=== PATIENT | female | born 1955 | race Two or more races ===

== ENCOUNTER 2021-03-10 15:07 | Outpatient (CLI) | payer OTHER | END 2021-03-10 15:22 | disposition home or self-care (01) | LOC: RAD 15:07 | PROVIDERS: ATTEND Orthopaedic Surgery | DX: M25.562 Pain in left knee (principal) ==

== ENCOUNTER → 2021-06-09 11:32 | Outpatient (CLI) | payer OTHER | END | disposition home or self-care (01) | LOC: RAD 11:32 | PROVIDERS: ATTEND Orthopaedic Surgery | DX: M17.12 Unilateral primary osteoarthritis, left knee (principal) ==

== ENCOUNTER 2021-07-25 09:05 | Outpatient (CLI) | payer OTHER | END 2021-07-25 09:07 | disposition home or self-care (01) | LOC: LAB 09:05 | PROVIDERS: ATTEND Orthopaedic Surgery | DX: D64.89 Other specified anemias (principal); E88.89 Other specified metabolic disorders; D68.8 Other specified coagulation defects; N39.0 Urinary tract infection, site not specified; Z22.322 Carrier or suspected carrier of Methicillin resistant Staphylococcus aureus; I49.8 Other specified cardiac arrhythmias; I10 Essential (primary) hypertension; Z76.89 Persons encountering health services in other specified circumstances ==

== ENCOUNTER 2021-08-11 09:15 | Inpatient (IN) | payer OTHER ==
[~2021-08-11] VITALS: Ht 165.1 cm; Wt 65.8 kg
[2021-08-17] MEDS ORDERED: XARELTO10 M1 (13:04)
== END 2021-08-18 18:05 | DRG 470 ==
LOC: SURH 08-15 08:10 → O/R 08-15 09:37 → SURH 08-15 19:00 → O/R 08-15 19:44 → SURH 08-15 20:10
PROVIDERS: ADMIT Orthopaedic Surgery; ATTEND Orthopaedic Surgery
PROC: 0SRD0J9 Replacement of Left Knee Joint with Synthetic Substitute, Cemented, Open Approach (ICD-10-PCS; principal; 2021-08-15 08:10)
DX: M17.12 Unilateral primary osteoarthritis, left knee (principal)

== ENCOUNTER 2022-08-17 08:43 | Outpatient (CLI) | payer OTHER ==
[~2022-08-17 08:43] MED LIST: XARELTO10 M1
== END 2022-08-17 08:52 | disposition home or self-care (01) ==
LOC: RAD 08:43
PROVIDERS: ATTEND Orthopaedic Surgery
DX: Z96.652 Presence of left artificial knee joint (principal)

== ENCOUNTER 2023-02-21 07:22 | Outpatient (CLI) | payer OTHER | END 2023-02-21 07:28 | disposition home or self-care (01) | LOC: RAD 07:22 | PROVIDERS: ATTEND Orthopaedic Surgery | DX: M20.11 Hallux valgus (acquired), right foot (principal) ==

== ENCOUNTER 2023-02-27 09:30 | Outpatient (CLI) | payer OTHER ==
[2023-03-01] MEDS ORDERED: PRAVASTATIN SOD10 MG PO (14:18)
== END 2023-02-27 09:41 | disposition home or self-care (01) ==
LOC: LAB 09:30
PROVIDERS: ATTEND Orthopaedic Surgery
DX: D64.89 Other specified anemias (principal); E88.89 Other specified metabolic disorders; D68.8 Other specified coagulation defects; N39.0 Urinary tract infection, site not specified; Z22.322 Carrier or suspected carrier of Methicillin resistant Staphylococcus aureus; E11.9 Type 2 diabetes mellitus without complications; Z76.89 Persons encountering health services in other specified circumstances; I49.9 Cardiac arrhythmia, unspecified; I10 Essential (primary) hypertension

== ENCOUNTER 2023-03-05 05:56 | Day surgery (SDC) | payer OTHER ==
[~2023-03-05 05:56] MED LIST changes: +PRAVASTATIN SOD10 MG PO
[2023-03-05] MEDS ORDERED: BACTRIM DS TAB1 EACH PO ×2 (11:43→11:49)
== END 2023-03-05 15:50 | disposition home or self-care (01) ==
LOC: CIR.AMB 05:56
PROVIDERS: ATTEND Orthopaedic Surgery
DX: M20.12 Hallux valgus (acquired), left foot (principal); M21.172 Varus deformity, not elsewhere classified, left ankle; Z20.822 Contact with and (suspected) exposure to COVID-19
CPT/HCPCS: 28299; L8699

== ENCOUNTER 2023-03-26 07:48 | Outpatient (CLI) | payer OTHER ==
[~2023-03-26 07:48] MED LIST changes: +BACTRIM DS TAB1 EACH PO
== END 2023-03-26 07:49 | disposition home or self-care (01) ==
LOC: LAB 07:48
PROVIDERS: ATTEND Orthopaedic Surgery
DX: M85.9 Disorder of bone density and structure, unspecified (principal); E56.1 Deficiency of vitamin K; E83.42 Hypomagnesemia

== ENCOUNTER 2023-04-11 10:58 | Outpatient (CLI) | payer OTHER | END 2023-04-11 11:04 | disposition home or self-care (01) | LOC: RAD 10:58 | PROVIDERS: ATTEND Orthopaedic Surgery | DX: M20.12 Hallux valgus (acquired), left foot (principal) ==

== ENCOUNTER 2023-06-14 10:25 | Outpatient (CLI) | payer OTHER | END 2023-06-14 10:27 | disposition home or self-care (01) | LOC: RAD 10:25 | PROVIDERS: ATTEND Orthopaedic Surgery | DX: M20.12 Hallux valgus (acquired), left foot (principal) ==

== ENCOUNTER 2023-06-18 12:44 | Outpatient (CLI) | payer OTHER | END 2023-06-18 12:45 | disposition home or self-care (01) | LOC: LAB 12:44 | PROVIDERS: ATTEND Orthopaedic Surgery | DX: M85.9 Disorder of bone density and structure, unspecified (principal); E83.42 Hypomagnesemia; E56.1 Deficiency of vitamin K ==

== ENCOUNTER 2023-09-11 07:40 | Outpatient (CLI) | payer OTHER ==
[2023-09-11 08:35] LABS: HEMATOCRIT 41.8 % (36.0-45.00); MEAN CELL VOLUME 92.9 fL (80.00-100.00); MEAN CORPUSCULAR HEMOGLOBIN 31.1 pg (27.00-32.0); MEAN CORPUSCULAR HGB CONC 33.4 g/dl (32.0-36.0); PLATELET COUNT 231 K/uL (150-450); RED CELL DISTRIBUTION WIDTH 13.7 % (11.5-14.5)
[2023-09-11 08:37] LABS: PH,URINE 6.5 (5.0-8.0); URINE APPEARANCE Clear; URINE BILIRRUBIN Negative (NEGATIVE); URINE BLOOD Negative; URINE COLOR Yellow; URINE GLUCOSE Negative (NEGATIVE); URINE LEUKOCYTE Trace; URINE NITRATE Negative; URINE PROTEIN Negative (NEGATIVE); URINE UROBILINOGEN 0.2 E.U./dl
[2023-09-11 08:41] LABS: URINE BACTERIA 12.5 uL (0.0-1933); URINE EPITHELIAL CELLS 6.1 uL (0.0-38.8); URINE RBC 13.7 uL (0.0-20.8); URINE WBC 4.4 uL (0.0-23.2)
[2023-09-11 09:03] LABS: ALBUMIN 4.1 gm/dL (3.4-5.0); BILIRUBIN TOTAL 0.39 mg/dL (0.3-1.2); CALCIUM 9.4 mg/dL (8.5-10.1); CREATININE SERUM 0.74 mg/dL (0.55-1.02); GFR 78.76; GLOBULINA 3.1 G/DL (2.4-3.5); POTASSIUM 4.33 mEq/L (3.5-5.1); TOTAL PROTEIN 7.2 gm/dL (6.4-8.2); TSH 1.16 uIU/mL (0.358-3.74)
[2023-09-11 09:25] LABS: INR 1.04; PARTIAL THROMBOPLASTIN TIME 29.3 SECONDS (22.0-34.0); PROTHROMBIN TIME 10.9 SECONDS (9.0-11.5)
== END 2023-09-11 14:24 | disposition home or self-care (01) ==
LOC: LAB 07:40
PROVIDERS: ATTEND Legal Medicine
DX: D64.9 Anemia, unspecified (principal); N39.9 Disorder of urinary system, unspecified; D68.9 Coagulation defect, unspecified; E03.8 Other specified hypothyroidism; N91.2 Amenorrhea, unspecified; R05.8 Other specified cough

== ENCOUNTER 2023-11-28 09:13 | Outpatient (CLI) | payer OTHER | END 2023-11-28 09:16 | disposition home or self-care (01) | LOC: RAD 09:13 | PROVIDERS: ATTEND Orthopaedic Surgery | DX: M79.672 Pain in left foot (principal) ==